=== PATIENT | female | born 1950 | race Caucasian/White ===

== ENCOUNTER 2023-05-01 07:07 | Day surgery (SDC) | payer MEDICARE ==
[~2023-05-01] VITALS: Ht 149.9 cm; Wt 78.7 kg
[~2023-05-01 07:07] MED LIST: COLO400C PO; IBUP-1022 PO; JARD1TAB PO; METF-838 PO; ROSU10TA6 PO
[2023-05-01] MEDS ORDERED: DEXTROSE 50% 50ML SYRINGE IV PRN (07:40)
[2023-05-01] MEDS ORDERED: GLUCAGON INJ 1MG VIAL SC PRN (07:40)
[2023-05-01] MEDS ORDERED: LIDOCAINE 1% SDV 5ML VIAL SC PRN (07:40)
[2023-05-01] MEDS ORDERED: NS 1,000 ML IV SCH (07:40)
[2023-05-01] MEDS ORDERED: GLUCOSE 4GM CHEW TABLET PO PRN (07:40)
[2023-05-01] MEDS ORDERED: INSULIN LISPRO (NovoLOG) PER UNIT SC PRN (07:40)
[2023-05-01] MEDS ORDERED: MIDAZOLAM INJ 2MG/2ML VIAL As Ordered ONE (07:54)
[2023-05-01] MEDS ORDERED: LIDOCAINE 2% 100MG/5ML SDV (FOR ANES.) As Ordered ONE (07:55)
[2023-05-01] MEDS ORDERED: propofoL 200 MG/20 ML VIAL As Ordered ONE (07:55)
[2023-05-01] MEDS ORDERED: ONDANSETRON 4MG 2ML VIAL As Ordered ONE (07:55)
[2023-05-01] MEDS ORDERED: fentaNYL 100 MCG/2 ML INJECTION As Ordered ONE (07:55)
[2023-05-01] MEDS: ceFAZolin SOD 2 GM in IV 1 EA IV ONE (09:06)
[2023-05-01] MEDS: LIDOCAINE 1% SDV 30ML VIAL As Ordered ONE (09:07)
[2023-05-01] MEDS ORDERED: ACETAMINOPHEN 1000MG 100ML IV BAG As Ordered ONE (09:13)
[2023-05-01] MEDS ORDERED: KETOROLAC 60MG 2ML VIAL As Ordered ONE (09:14)
[2023-05-01 10:02] VITALS: BP 142/75; TEMP 97.7; O2SAT 97
== END 2023-05-01 10:23 | disposition home or self-care (01) ==
LOC: M SDC 07:07
PROVIDERS: ATTEND Podiatrist Foot & Ankle Surgery
DX: M20.11 Hallux valgus (acquired), right foot (principal); M20.41 Other hammer toe(s) (acquired), right foot; E11.9 Type 2 diabetes mellitus without complications; E78.00 Pure hypercholesterolemia, unspecified; E66.9 Obesity, unspecified; Z79.84 Long term (current) use of oral hypoglycemic drugs; Z79.899 Other long term (current) drug therapy; Z90.711 Acquired absence of uterus with remaining cervical stump
CPT/HCPCS: 28285; 28298; C1713; J0131; J0665; J0690; J1885; J2250; J2405; J3010